=== PATIENT | male | born 1950 | race Caucasian/White ===

== ENCOUNTER → 2016-05-21 | Outpatient (CLI) | payer OTHER ==
--- NOTE | 2016-05-21 14:48 | DX ---
PA and Lateral Chest Indication: Flulike symptoms. Cough for 4 5 days. Comparison: Portable chest dated January 08, 2011 Findings: The lungs are well aerated and clear. Minimal peribronchial thickening is unchanged since 2010. No edema, airspace consolidation or effusion. Heart size is normal. Minimal kyphosis a nd multilevel minimal degenerative disk disease. Impression: Clear lungs. No pneumonia or edema.
== END ==
LOC: BMCIMAGING 14:04
PROVIDERS: ATTEND Family Medicine
DX: R05 Cough (principal)